=== PATIENT | female | born 1990 ===

== ENCOUNTER 2023-07-05 05:31 | Day surgery (SDC) | payer OTHER ==
[~2023-07-05 05:31] MED LIST: CLONAZEPAM0.5 MG PO; LEXAPRO20 MG PO
== END 2023-07-05 16:20 | disposition home or self-care (01) ==
LOC: CIR.AMB 05:31
PROVIDERS: ATTEND Orthopaedic Surgery Hand Surgery
DX: S52.531A Colles' fracture of right radius, initial encounter for closed fracture (principal); Z20.822 Contact with and (suspected) exposure to COVID-19; F41.9 Anxiety disorder, unspecified
CPT/HCPCS: 25609; 25280; L8699